=== PATIENT | female | born 1970 | race Caucasian/White ===

== ENCOUNTER 2017-07-17 08:34 | Emergency (ER) | payer OTHER ==
[~2017-07-17] VITALS: Ht 165.1 cm; Wt 47.6 kg
[~2017-07-17 08:34] MED LIST: ALBUTEROL2.5 MG/0.5 IH; ATIVAN PO; BENZONATATE PO; EC-NAPROSYN500 MG PO; GABAPENTIN300 M2 PO; GABAPENTIN600 MG PO; HCTZ PO; LISINOPRIL PO; LORTAB 7.5-5001 TAB PO; MEDROL PO; OXYCODONE HCL10 MG PO; PERCOCET 10/31 UDTA1 PO; PREDNISONE PO; VICODIN 5/500 T1 TAB PO; VITAMIN D5000 UNIT PO; XANAX0.5 M1 PO; XANAX0.5 MG PO; ZITHROMAX1 G/PKT PO
[2017-07-17] MEDS ORDERED: LORTAB 10-3251 EACH PO (08:40)
== END 2017-07-17 09:40 | disposition home or self-care (01) ==
LOC: SED 08:34
DX: M50.10 Cervical disc disorder with radiculopathy, unspecified cervical region (principal); I10 Essential (primary) hypertension; Z98.890 Other specified postprocedural states; F17.200 Nicotine dependence, unspecified, uncomplicated; Z79.899 Other long term (current) drug therapy
CPT/HCPCS: 96372; 99283; J1040; J1885